=== PATIENT | female | born 1945 | race Caucasian/White ===

== ENCOUNTER 2020-03-13 07:49 | Day surgery (SDC) | payer MEDICARE ==
[2020-03-12 12:19] LABS: BASOPHILS # (AUTO) 0.1 X10'3 (0-0.2); BASOPHILS % (AUTO) 1.1 % (0-1); EOSINOPHILS # (AUTO) 0.2 X10'3 (0-0.9); EOSINOPHILS % (AUTO) 3.1 % (0-6); HEMATOCRIT 40.5 % (35.0-45.0); HEMOGLOBIN 13.3 g/dl (12.0-16.0); LYMPHOCYTES % (AUTO) 14.8 % (21-51); MEAN CORPUSCULAR HGB CONC 32.8 g/dL (33.0-36.5); MEAN CORPUSCULAR VOLUME 94.4 FL (78-98); MEAN PLATELET VOLUME 9.2 FL (7.4-10.4); MONOCYTES # (AUTO) 0.5 X10'3 (0-0.9); MONOCYTES % (AUTO) 8.3 % (2-12); NEUTROPHILS # (AUTO) 4.8 X10'3 (1.8-7.7); NEUTROPHILS % (AUTO) 72.7 % (42-75); PLATELET COUNT 235 X10'3 (140-440); RED CELL DISTRIBUTION WIDTH 14.5 % (11.5-14.5); WHITE BLOOD COUNT 6.6 X10'3 (4.5-11.0)
[2020-03-12 12:23] LABS: ANION GAP 9 (8-16); BLOOD UREA NITROGEN 23 MG/DL (7-18); CALCIUM 9.3 MG/DL (8.5-10.1); CHLORIDE 104 MMOL/L (99-107); CREATININE 0.96 MG/DL (0.40-0.90); GLUCOSE 88 MG/DL (70-104); POTASSIUM 4.1 MMOL/L (3.5-5.1); SODIUM 140 MMOL/L (135-145); TOTAL CARBON DIOXIDE 26.7 MMOL/L (24-32); eGFR 57 ML/MIN
[~2020-03-13] VITALS: Ht 165.1 cm; Wt 158.0 kg
[2020-03-13] VITALS (32 sets, daily range): BP systolic 123–170; BP diastolic 45–69
[2020-03-13] MEDS ORDERED: diphenhydrAMINE 25mg capsule PO ONE (08:15)
[2020-03-13] MEDS ORDERED: MIDAZolam 1mg/ml 10ml vial IV ONE (08:15)
[2020-03-13] MEDS ORDERED: amiodarone 150mg/dext, iso-os 100 ML IV ONE (08:15)
[2020-03-13] MEDS ORDERED: atropine 0.1mg/ml 10ml syringe IV ONE (08:15)
[2020-03-13] MEDS ORDERED: normal saline 1000ml 1,000 ML IV SCH (08:15)
[2020-03-13] MEDS ORDERED: LORazepam 0.5 MG tablet PO ONE (08:15)
[2020-03-13] MEDS ORDERED: morphine 10mg/ml inj. IV ONE (08:15)
[2020-03-13] MEDS ORDERED: BENA10TA75 PO (08:41)
[2020-03-13] MEDS ORDERED: LEVO50TA8 PO (08:41)
[2020-03-13] MEDS ORDERED: POTA20TA19 PO (08:41)
[2020-03-13] MEDS ORDERED: AMLO5TAB16 PO (08:41)
[2020-03-13] MEDS ORDERED: FURO40TA4 PO (08:41)
[2020-03-13] MEDS ORDERED: LEVO25TA7 PO (08:41)
[2020-03-13] MEDS ORDERED: WARF-55 PO (08:41)
[2020-03-13] MEDS ORDERED: WARF7.5T48 PO (08:41)
--- NOTE | 2020-03-13 12:00 | NUR ---
Defibrillator strip ran out of paper. Unable to retrieve printed strip. First strip did print and was put in chart. EKG for confirmation of Sinus Rhythm in the chart
== END 2020-03-13 13:45 | disposition home or self-care (01) ==
LOC: SSTAY O 07:49
PROVIDERS: ATTEND Internal Medicine Cardiovascular Disease
DX: I48.19 Other persistent atrial fibrillation (principal); I10 Essential (primary) hypertension; J44.9 Chronic obstructive pulmonary disease, unspecified; E78.5 Hyperlipidemia, unspecified; G47.33 Obstructive sleep apnea (adult) (pediatric)
CPT/HCPCS: 36415; 80048; 85025; 85610; 92960; 93005; J0461; J2250; J2270; J7030